=== PATIENT | male | born 1980 | race Caucasian/White ===

== ENCOUNTER 2017-02-24 19:05 | Emergency (ER) | payer OTHER ==
[2017-02-24 20:44] VITALS: BP 117/87
[2017-02-24] MEDS ORDERED: HYDROcodone/ACETAMIN 5-325 MG* 1 TAB PO ONE (21:13)
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
== END 2017-02-24 22:55 | disposition home or self-care (01) ==
LOC: UCCORT 19:05
DX: S29.011A Strain of muscle and tendon of front wall of thorax, initial encounter (principal); X50.0XXA Overexertion from strenuous movement or load, initial encounter; Y93.89 Activity, other specified; Y92.9 Unspecified place or not applicable
CPT/HCPCS: 99202; G0463

== ENCOUNTER 2017-03-01 12:09 | Emergency (ER) | payer OTHER ==
[2017-03-01 12:42] VITALS: BP 124/79
--- NOTE | 2017-03-01 12:57 | UC ---
Truncal Trauma HPI - HPI Summary HPI Summary: patient was seen a few days ago for a muscle tear of the serratus muscles on the left side. he is still experiencing pain and not able to lift, even a bag of groceries causes pain. - History Of Current Complaint Chief Complaint: UCGeneralIllness Stated Complaint: RECHECK CHEST PAIN FROM INJURY Time Seen by Provider: 03/01/17 12:45 Hx Obtained From: Patient Onset/Duration: Sudden Onset, Lasting Days Onset Of Pain: Post Accident Severity Initially: Severe Severity Currently: Moderate Aggravating Factor(s): Movement Alleviating factor(s): Rest - Allergies/Home Medications Allergies/Adverse Reactions: Allergies Allergy/AdvReac Type Severity Reaction Status Date / Time Bee Venom Allergy Anaphylatic Verified 03/01/17 12:36 Shock PMH/Surg Hx/FS Hx/Imm Hx Previously Healthy: Yes - Surgical History Surgical History: Yes Surgery Procedure, Year, and Place: cholesteotomas right interior ear drum, t/a - Family History Known Family History: Positive: Hypertension - Social History Alcohol Use: None Substance Use Type: None Smoking Status (MU): Never Smoked Tobacco Review of Systems Constitutional: Negative Skin: Negative Eyes: Negative ENT: Negative Respiratory: Negative Cardiovascular: Negative Gastrointestinal: Negative Genitourinary: Negative Motor: Negative Neurovascular: Negative Musculoskeletal: Arthralgia, Decreased ROM, Myalgia Neurological: Negative Psychological: Negative All Other Systems Reviewed And Are Negative: Yes Physical Exam Triage Information Reviewed: Yes Appearance: Well-Appearing, Pain Distress, Obese Vital Signs: Initial Vital Signs Temp 99 F 03/01/17 12:37 Pulse 86 03/01/17 12:37 Resp 18 03/01/17 12:37 BP 124/79 03/01/17 12:37 Pulse Ox 97 03/01/17 12:37 Vital Signs Reviewed: Yes Eye Exam: Normal Eyes: Positive: Conjunctiva Clear ENT Exam: Normal Neck exam: Normal Neck: Positive: Supple, Nontender, No Lymphadenopathy Respiratory Exam: Normal Respiratory: Positive: Chest non-tender, Lungs clear, Normal breath sounds Cardiovascular Exam: Normal Cardiovascular: Positive: RRR, No Murmur, Pulses Normal Abdominal Exam: Normal Abdomen Description: Positive: Nontender, No Organomegaly, Soft Bowel Sounds: Positive: Present Musculoskeletal Exam: Normal Musculoskeletal: Positive: No Edema, Strength Limited @ - due to pain, ROM Limited @ - in rotation of trunk Neurological Exam: Normal Neurological: Positive: Alert, Muscle Tone Normal Psychological Exam: Normal Skin Exam: Normal Truncal Trauma Course/Dx - Course Course Of Treatment: hx obtained, exam performed, meds reviewed, continue current treatment. ducated on approriate stretches, and core strengthening exercises. - Differential Dx/Diagnosis Differential Diagnosis/HQI/PQRI: Other - mucsle strain Provider Diagnoses: muscle strain of left serratus muscles Discharge - Discharge Plan Condition: Stable Disposition: HOME Patient Education Materials: Muscle Strain (ED), Core Strengthening Exercises ( GEN) Forms: *Work Release Referrals: Non Staff,Doctor [Primary Care Provider] - Additional Instructions: keep with the frequenty heating and stretching, Advil as needed for pain and swelling.
== END 2017-03-01 12:59 | disposition home or self-care (01) ==
LOC: UCCORT 12:09
DX: S29.011D Strain of muscle and tendon of front wall of thorax, subsequent encounter (principal); X58.XXXD Exposure to other specified factors, subsequent encounter; E66.9 Obesity, unspecified
CPT/HCPCS: 99211; G0463

== ENCOUNTER 2018-06-16 18:51 | Emergency (ER) | payer OTHER ==
[2018-06-16 19:34] VITALS: BP 118/87
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
[2018-06-16] MEDS ORDERED: Ketorolac INJ* 60 MG/2 ML VIAL IM ONE (20:30)
[2018-06-16] MEDS ORDERED: Cyclobenzaprine TAB* 10 MG PO ONE (20:31)
--- NOTE | 2018-06-17 07:23 | RAD ---
HISTORY: right shoulder injury carrying dryer COMPARISONS: None VIEWS: 4, Frontal internal rotation, external rotation, outlet, and axillary views of the right shoulder FINDINGS: BONE DENSITY: Normal. BONES: There is no displaced fracture. JOINTS: There is mild osteoarthritis of the AC joint ALIGNMENT: There is no dislocation. SOFT TISSUES: Unremarkable. OTHER FINDINGS: None. IMPRESSION: NO ACUTE OSSEOUS INJURY. IF SYMPTOMS PERSIST, RECOMMEND REPEAT IMAGING. R0
== END 2018-06-16 21:00 | disposition home or self-care (01) ==
LOC: UCCORT 18:51
DX: S43.401A Unspecified sprain of right shoulder joint, initial encounter (principal); X50.0XXA Overexertion from strenuous movement or load, initial encounter; Y93.89 Activity, other specified; Y92.9 Unspecified place or not applicable; Z21 Asymptomatic human immunodeficiency virus [HIV] infection status
CPT/HCPCS: 96372; 99212; A9270-GY; G0463; J1885